=== PATIENT | male | born 1995 | race Caucasian/White ===

== ENCOUNTER 2019-11-08 05:40 | Day surgery (SDC) | payer BC ==
[~2019-11-08 05:40] MED LIST: Buffered Lidocaine 1% SYRIN* 1 ML/SYRINGE INTRADERM ONE
[2019-11-08] MEDS ORDERED: Naloxone* 0.4 MG/ML 1 ML VIAL IV PRN (05:49)
[2019-11-08] MEDS ORDERED: HYDROmorphone INJ1* 1 MG/ML SYRINGE IV PRN (05:49)
[2019-11-08] MEDS ORDERED: oxyCODONE TAB* 5 MG TAB PO PRN (05:49)
[2019-11-08] MEDS ORDERED: DiMENhydriNATE IV* 50 MG/ML VIAL IV PUSH PRN (05:49)
[2019-11-08] MEDS ORDERED: Scopolamine 1.5 mg* PATCH TRANSDERM PRN (05:49)
[2019-11-08] MEDS ORDERED: PROCHLORPERAZINE INJ 5 MG/ML 2 ML VIAL IV PRN (05:49)
[2019-11-08] MEDS ORDERED: fentaNYL* 50 MCG/ML 2 ML VIAL (100 MCG VIAL) IV PRN (05:49)
[2019-11-08] MEDS ORDERED: Famotidine IV* 10 MG/ML 2 ML (20 mg) IV ONE (06:00)
[2019-11-08] MEDS ORDERED: Dexamethasone TAB* 4 MG PO ONE (06:00)
[2019-11-08] MEDS ORDERED: Lactated Ringers 1000 ML Bag* 1,000 ML IV SCH (06:00)
[2019-11-08] MEDS ORDERED: Ondansetron ODT TAB* 4 MG PO ONE (06:00)
[2019-11-08] MEDS ORDERED: Famotidine IV* 10 MG/ML 2 ML (20 mg) ONE (06:05)
[2019-11-08] MEDS ORDERED: Buffered Lidocaine 1% SYRIN* 1 ML/SYRINGE INTRADERM ONE (06:05)
[2019-11-08] MEDS ORDERED: Clindamycin 900 MG/D5W BAG(*) 900 MG/50 ML BAG IVPB ONE (06:05)
[2019-11-08] MEDS ORDERED: Dexamethasone TAB* 4 MG ONE (06:05)
[2019-11-08] MEDS ORDERED: Ondansetron ODT TAB* 4 MG ONE (06:05)
[2019-11-08] MEDS ORDERED: KETAMINE HCL* 50 MG/ML 10 ML VIAL ONE (07:10)
[2019-11-08] MEDS ORDERED: fentaNYL* 50 MCG/ML 2 ML VIAL (100 MCG VIAL) ONE (07:10)
[2019-11-08] MEDS ORDERED: Midazolam* 1 MG/ML 5 ML VIAL (5 MG) ONE (07:10)
[2019-11-08] MEDS ORDERED: Bupivacaine 0.5%* 50 ML MDV VIAL ONE (07:24)
[2019-11-08] MEDS ORDERED: PROCHLORPERAZINE INJ 5 MG/ML 2 ML VIAL ONE (07:48)
[2019-11-08] MEDS ORDERED: Acetaminophen IV 1GM/100ML * 100 ML ONE (07:48)
[2019-11-08] MEDS ORDERED: Propofol* 10 MG/ML 20 ML BTL ONE (07:48)
[2019-11-08] MEDS ORDERED: Lidocaine 2% PF * 5 ML VIAL ONE (07:48)
[2019-11-08] MEDS ORDERED: Ketorolac INJ* 30 MG/ML 1 ML VIAL ONE (07:48)
[2019-11-08] MEDS ORDERED: HYDROmorphone INJ1* 1 MG/ML SYRINGE ONE (07:49)
--- NOTE | 2019-11-08 11:04 | OP ---
Operative Report - Blank - Operative Report Date of Operation: 11/08/19 Note: PATIENT: Harpal Bolaños DATE OF : 1995 DATE OF SURGERY: 11/08/2019 SURGEON: Mauricio Cohen MD DISTRICT ADMINISTRATIVE ASSISTANT: GREG Wallis, whos assistance was necessary for positioning, retraction, help with instrumentation, and closure. ANESTHESIOLOGIST: Dr. Ibrahim PREOPERATIVE DIAGNOSIS: Right knee ACL tear and lateral meniscus tear POSTOPERATIVE DIAGNOSIS: Right knee ACL tear and lateral meniscus tear OPERATION: 1. Right knee arthroscopic ACL reconstruction with hamstring tendon autograft 2. Right knee arthroscopic lateral meniscus repair ANESTHESIA: General IMPLANTS: Arthrex TightRope for femoral fixation. Arthrex GraftBolt for tibial fixation. Arthrex fibercinch for meniscal repair. TOURNIQUET TIME: Less than 2 hours with a well-padded thigh tourniquet at 250mmHg SPECIMENS: none ESTIMATED BLOOD LOSS: minimal COMPLICATIONS: none STATUS: Stable from the operating room to the recovery room and then home. INDICATIONS FOR PROCEDURE: Harpal sustained the above injury. Both operative and non operative treatment alternatives were reviewed. Further, the nature and risks of surgery were reviewed in careful detail, in the office as well as the pre-operative holding area. Our discussions regarding the risks of surgery included, but were not limited to, infection, wound problems, nerve injury, neuroma, RSD, persistent symptoms, blood clot, failure of the surgery, re-rupture, failure of the repair , post-traumatic arthritis, need for further surgery, and even the remote chance of catastrophic complication. DESCRIPTION OF PROCEDURE: The patient was seen in the preoperative holding unit and informed written consent was obtained. The appropriate extremity was marked. The patient was then brought to the operating room and carefully positioned on the operating room table. Anesthesia was induced. All bony prominences were padded with great care. A well-padded thigh tourniquet was placed. A chlorhexidine based pre- scrub was performed followed by a chloraprep prep and drape in standard sterile fashion. A surgical safety pause was then conducted in which we confirmed the appropriate patient, extremity, planned procedure, availability of equipment, indication and administration of prophylactic antibiotics, and DVT prophylaxis in the form of a compression boot on the non-surgical extremity. I began with an examination of the knee under anesthesia. She had gross laxity on Kang testing and a positive pivot shift. I made a standard anterolateral knee arthroscopy portal. A diagnostic arthroscopy was performed. The articular cartilage appeared to be in good condition in all three compartments. A posterior horn lateral meniscus tear was found. It was a longitudinal/parrot beak pattern tear. There was also some meniscal fraying. Under direct visualization, an anterior medial knee arthroscopy portal was made. A probe was inserted and the meniscal tear was probed. The posterior meniscal root was stable. A rasp was used to roughen up the tear edges. An Arthrex all-inside fibercinch was then inserted into the joint with the shoehorn. Two horizontal mattress sutures were placed to repair the tear. This provided adequate repair of the tear and the decision was made not to place more stitches. The tear was held nice and secure upon probing. I then used the oscillating shaver to debride the frayed edges. An Esmarch exsanguination of the limb was then performed and the tourniquet was inflated. I then turned my attention to the hamstring autograft harvest. An approximately 4 cm incision was made over the pes anserinus. The sartorius fascia was then incised distally and the hamstring tendons were visualized from the deep aspect of the pes anserinus. The MCL was visualized on the bone and was left intact. The gracilis and semitendinosus tendons were dissected out. The ends of the tendon were whipstitched with a fiber loop suture. I then utilized a tendon stripper to harvest first the gracilis tendon and then the semi-semitendinosus tendon. The semitendinosus was robust and of good length, but the garcilis was diminutive.. The tendons were then cleared of muscle on the back table and the other ends were again whipstitched with fiber loop sutures. The gracilis was doubled over and the semi-tendinosis, which was of great length, was tripled over, to give a 5 strand construct. The Arthrex TightRope looped suture was attached. The graft was sized to a 8.5 mm on the femoral side and a 9.5 mm on the tibial side. The graft was then placed on stretch while I proceeded with a knee arthroscopy. The arthroscope was reinserted into the knee and the remnant of the ACL was debrided to provide good visualization of the notch. The lateral wall of the notch was then cleared using a shaver as well as cautery. This was brought all the way back to the posterior edge of the femoral condyle. Additionally, a ronel was made at the tibial insertion of the ACL onto the tibia, which was where I would later place my tibial tunnel. This was in line with the posterior aspect of the anterior horn of the lateral meniscus and on the lateral slope of the medial tibial spine. A femoral flip-cutter guide was then placed through the anterolateral portal to the anatomic spot of the ACL insertion onto the femur. The lateral femur was approached with an approximately 2 cm incision anterior to the posterior aspect of the iliotibial band. Using the guide and flip-cutter, I retrograde drilled an 8.5 mm femoral socket. The femoral socket was about 30 mm in length and was visualized through the anteromedial portal with the scope, showing a well- formed socket with good cortical bone laterally. A fiber wire suture was then placed through the femoral tunnel for later graft passage. Attention was then turned to the tibial tunnel. The tibial aiming guide was placed and a guidewire was drilled into the joint. I then utilized a 9.5 mm reamer to overdrill the guidewire and make the tibial tunnel. I then used a suture grasper through the tibial tunnel to grab the looped fiber wire suture and pulled it through the tibial tunnel. I then pulled the tight rope button through the tunnels and watched it flipped under direct visualization on the lateral femoral cortex. I then used a toggling maneuver with traction on the distal end of the graft to toggle the graft up through the tibial tunnel and into the femoral socket. I had previously marked out 20 mm of graft to ensure that at least this much was in the femoral socket, which was achieved. The knee was then cycled through full range of motion numerous times while holding tension on the graft distally. There was no anterior impingement. The knee was then brought to 15 of flexion and a reverse Kang maneuver was performed. While holding the graft on tension, a nitinol guidewire and dilators were used, and then a GraftBolt sheath and screw were placed into the tibial tunnel, providing excellent fixation. This was an 9 mm GraftBolt. Kang and pivot shift were then tested and the knee was very stable on Kang and there was no pivot shift. Final arthroscopic images were obtained. There was no anterior impingement of the graft. All of the wounds were copiously irrigated. The sartorius fascia was closed and then all the wounds were closed in a layered fashion utilizing 0 Vicryl 3-0 Monocryl and 3-0 PDS. The portals were closed with 3-0 nylon sutures. A sterile dressing was then applied, as well as a SHANNA stocking, Cryo/Cuff and [place]ois brace with the knee locked in extension. The patient was then awakened from anesthesia and transferred to the recovery room in stable condition. There were no complications. All needle and sponge counts were correct at the end of the case. ATTESTATION: I attest I was present and scrubbed and performed the critical portions of the procedure myself. POSTOPERATIVE PLAN: He will remain toe-touch weight-bearing and follow-up in 2 weeks for likely suture removal. My post-op protocol/instructions were given to the patient.
[2019-11-08] MEDS ORDERED: oxyCODONE TAB* 5 MG TAB ONE (12:41)
[2019-11-08 14:56] VITALS: BP 142/78
[2019-11-11] MEDS ORDERED: Scopolamine PATCH Remove* 1 NOTE MISC PATCH OFF ONE (05:50)
== END 2019-11-08 14:57 | disposition home or self-care (01) ==
LOC: OR 05:40
PROVIDERS: ATTEND Orthopaedic Surgery
DX: S83.511A Sprain of anterior cruciate ligament of right knee, initial encounter (principal); S83.281A Other tear of lateral meniscus, current injury, right knee, initial encounter; X50.0XXA Overexertion from strenuous movement or load, initial encounter; Y93.69 Activity, other involving other sports and athletics played as a team or group; Y92.318 Other athletic court as the place of occurrence of the external cause
CPT/HCPCS: A9270-GY; C1713; C1776; J0780; J1170; J1885; J2250; J2704; J3010; J3490; J8540